=== PATIENT | male | born 1960 | race Hispanic/Latino ===

== ENCOUNTER 2019-09-17 17:42 | Emergency (ER) | payer SELFPAY ==
--- NOTE | 2019-09-17 18:52 | RAD ---
RIGHT HIP TWO VIEWS: HISTORY: Right hip pain. FINDINGS: No acute fracture or dislocation is seen. POS: [facility]
[2019-09-17] MEDS ORDERED: HYDROcodone/Acetaminophen 5/325 mg Tablet ONE (19:18)
== END 2019-09-17 19:33 | disposition home or self-care (01) ==
LOC: ERS 17:42
DX: S70.01XA Contusion of right hip, initial encounter (principal); W01.0XXA Fall on same level from slipping, tripping and stumbling without subsequent striking against object, initial encounter